=== PATIENT | female | born 1970 | race Asian ===

== ENCOUNTER 2018-11-10 08:44 | Day surgery (SDC) | payer OTHER ==
[2018-11-07 10:06] VITALS: BMI 36.4
[2018-11-10] MEDS ORDERED: LIDOCAINE HCL/PF 2% SDV 5ML VIAL ONE (09:43)
[2018-11-10] MEDS ORDERED: PROPOFOL 20 ML ONE ×2 (09:43)
[2018-11-10 11:10] VITALS: PULSE 68; TEMP 97.9
[2018-11-10 11:14] VITALS: BP 137/62
== END 2018-11-10 10:50 | disposition home or self-care (01) ==
LOC: FASU-ENDO 08:44
PROVIDERS: ATTEND Internal Medicine Gastroenterology
PROC: 0DJD8ZZ Inspection of Lower Intestinal Tract, Via Natural or Artificial Opening Endoscopic (ICD-10-PCS; principal; 2018-11-10 09:52)
DX: Z12.11 Encounter for screening for malignant neoplasm of colon (principal); Z83.71 Family history of colonic polyps
CPT/HCPCS: 84703